=== PATIENT | male | born 1950 | race Caucasian/White ===

== ENCOUNTER 2025-07-22 14:58 | Outpatient (REF) | payer MEDICARE, SELFPAY ==
[2025-07-22 18:31] LABS: Thyroid Stimulating Hormone 1.20 uIU/mL (0.32-4.0)
[2025-07-22 18:46] LABS: Folate 15.2 ng/mL (> or = 4.0); Vitamin B12 359 pg/mL (200-900)
[2025-07-27 02:33] LABS: ABETA 42/40 Ratio 0.159 (> OR = 0.170); Alzeheimer's Interpretation Indeterminant; Tau protein phosphorylated 217 0.36 pg/mL (< OR = 0.15)
== END 2025-07-22 14:59 | disposition home or self-care (01) ==
LOC: HO.LAB 14:58
PROVIDERS: PCP Internal Medicine; Visit Provider Psychiatry & Neurology Neurology
DX: G31.84 Mild cognitive impairment of uncertain or unknown etiology (principal); G62.9 Polyneuropathy, unspecified
CPT/HCPCS: 36415; 82233; 82234; 82607; 82746; 84393; 84443; 99202

== ENCOUNTER 2025-07-22 14:58 | Outpatient (AMB) | payer MEDICARE, SELFPAY ==
--- NOTE | 2025-07-22 15:08 | A.OFFVIS_ITS ---
Intake Visit Reasons: memory loss HPI Comments Details: The patient is a 75-year-old male, a property tax assessor, presenting with cognitive concerns potentially related to early-stage Alzheimer's Disease. For the past couple of years, he has experienced increasing difficulties with memory and attention, marked by what he identifies as dyslexic-like symptoms. As a tax analyst, he has been making errors in his work, particularly interposing numbers and words, despite efforts to be more deliberate and slow with his tasks. He describes these cognitive issues intensifying under stress. Additionally, he reports episodes of navigational confusion, both in driving and in finding locations, including the difficulty encountered today in arriving at the clinic. The patient uses GPS for driving to mitigate these instances. He mentions specific instances of misunderstanding directions, yet can occasionally self-correct. Memory issues mostly pertain to route directions, whereas he can recall specific details, such as room numbers, once situated. Over the past years, occasional financial errors have occurred, such as incomplete checks for utility payments. His diabetes is reported well- controlled; however, he has essential hypertension requiring attentive management. There is a historical note of successfully treated prostate cancer. The patient denies depression but acknowledges typical stress fitting his lifestyle. There is no recent neurological imaging. Review of Systems Narrative - Neurological: Reports difficulties with memory, navigation; denies hallucinations. - Endocrine: Reports well-controlled diabetes. - Cardiovascular: Reports essential hypertension, undergoing cardiology follow- up. - Urogenital: Denies current issues, history of prostate cancer treated successfully. - Mood: Denies clinical depression; reports typical lifestyle stress. - Family/Social: Reports no significant family history of dementia. Physical Exam Neuro Other: Mental Status: He is alert and awake with normal spontaneity but somewhat decreased fluency of speech when sometime he would look for word. Comprehension was intact. His [place] cognitive assessment score was 28, mini-mental status score was 29, and functional activities score was 4. Cranial Nerves: CN II: Visual rosado full to confrontation, visual acuity intact. CN III, IV, : Pupils equal, round, reactive to light and accommodation. Extraocular movements are normal. CN V: Facial sensation is normal. CN VII: Facial movements symmetrical. CN VIII: Hearing intact to bedside conversation is normal. CN IX, X: Palate elevates symmetrically. CN XI: Shoulder shrug and head turn symmetrical. CN XII: Tongue midline without atrophy or fasciculations. Motor: Bulk and tone normal in all extremities. No significant muscle weakness in arms and legs. No drift. Reflexes: Deep tendon reflexes were trace in knees and arms and absent in ankles with flexor plantars Coordination: [id number] testing revealed mild bilateral ataxia. Gait and Station: No obvious gait abnormality. No ataxia or instability. Extrapyramidal: Full facial expressions and blinking. No rigidity. Movements are appropriate with no tremor or abnormality. Speech: Normal; no dysarthria or tremor. Assessment & Plan Assessment & Plan (1) MCI (mild cognitive impairment): Code(s): G31.84 - Mild cognitive impairment of uncertain or unknown etiology Category: Medical (2) Peripheral neuropathy: Code(s): G62.9 - Polyneuropathy, unspecified Category: Medical Qualifiers: Peripheral neuropathy type: polyneuropathy, unspecified Qualified Code(s): G62.9 - Polyneuropathy, unspecified Plan 75 years old man with mild cognitive impairment with suspicion of Alzheimer disease. He was reassured and educated about process of investigation. Initial investigations were requested and I would see him back after MRI. 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 I informed the patient about the concern of early-stage Alzheimer's Disease, discussed the rationale behind recommended diagnostic tests like blood tests and brain MRI, and the importance of catching the condition early. Modern treatments available for Alzheimer's were discussed, including their success rates and early intervention benefits. Diagnostic results will dictate whether FDA- approved medications are appropriate and necessary. The patient was assured regarding diabetes control and encouraged to maintain hypertension management, with an upcoming cardiology consultation highlighted. Orders: Orders Vitamin B12 and Folate Today G31.84 - Mild cognitive impairment of uncertain or unknown etiology Thyroid Stimulating Hormone Today G31.84 - Mild cognitive impairment of uncertain or unknown etiology ABeta 42/40 p-tau 217 Eval Today G31.84 - Mild cognitive impairment of uncertain or unknown etiology MR head/brain wo con Today G31.84 - Mild cognitive impairment of uncertain or unknown etiology Coding Level of Care Code New Pt Level 5 (92473) Global (20902) Diagnoses MCI (mild cognitive impairment) G31.84 Peripheral polyneuropathy G62.9 Peripheral neuropathy type: polyneuropathy, unspecified Time Spent (min) 65 Comment Reviewing records, psychological test, and counseling,
--- OUTSIDE RECORDS SUMMARY | 2025-07-22 18:13 | XMS_ITS | Clinical Summary ---
Author Organization [facility] Address [address] [place] [address] Phone Care Team Providers Care Academic Coordinator Name Role Phone Lin Carrillo MD Primary Care Provider + [phone] Allergies Active Allergy Reactions Criticality Noted Date Comments Hydrochlorothiazide 10/02/2022 Other reaction(s): leg cramping Niacin Flushing Medium 07/28/2024 Medications Vitamin C tablet Vitamin C Active ubidecarenone (COENZYME Q10 ORAL) Take by mouth 1 (one) time each day. COENZYME Q10 (CO Q 10 OR) Active ferrous sulfate 325 mg (65 mg elemental iron) tablet Take 1 tablet (325 mg total) by mouth. Every morning with breakfast Active fluticasone propionate (FLONASE) 50 mcg/actuation nasal spray fluticasone propionate 50 mcg/actuation nasal spray,suspension INSTILL 2 SPRAYS IN EACH NOSTRIL ONCE A DAY NEEDED 1 Active gabapentin (NEURONTIN) 300 mg capsule Take 4 capsules (1,200 mg total) by mouth 1 (one) time each day in the morning. Active metFORMIN (GLUCOPHAGE) 500 mg tablet Take 2 tablets (1,000 mg total) by mouth at bedtime. Active OMEGA-3 FATTY ACIDS ORAL Take 2,000 mg by mouth 1 (one) time each day. OMEGA-3 FATTY ACIDS (OMEGA-3 CF) 1000 MG CAPS Active omeprazole (PriLOSEC) [address] capsule Take 1 capsule (20 mg total) by mouth 1 (one) time each day. Active pravastatin (PRAVACHOL) 40 mg tablet Take 1 tablet (40 mg total) by mouth 1 (one) time each day. 3 Active cyanocobalamin (VITAMIN B-12) 100 mcg tablet Take 0.5 tablets (50 mcg total) by mouth 1 (one) time each day. Active gabapentin (NEURONTIN) 300 mg capsule Take 3 capsules (900 mg total) by mouth at bedtime. Active lisinopriL (PRINIVIL,ZESTR IL) 30 mg tablet Take 1 tablet (30 mg total) by mouth 1 (one) time each day. Active cholecalciferol (VITAMIN D-3) 25 mcg (1,000 unit) tablet Take 1 tablet (1,000 Units total) by mouth 1 (one) time each day. Active magnesium, amino acid chelate, 133 mg tablet Take 1 tablet (133 mg total) by mouth 2 (two) times a day. Active potassium gluconate 550 mg (90 mg) tablet Take by mouth. Activ e ezetimibe (ZETIA) 10 mg tablet Take 1 tablet (10 mg total) by mouth 1 (one) time each day. 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 Patient will continue present medical management for hyperlipidemia. Patient is experiencing no cardiovascular symptoms at this time. Last Assessment & Plan: Patient therapy for lipid management seems to have his lipids under good control without side effects. Patient will continue present medical management for hyperlipidemia. Patient is experiencing no cardiovascular symptoms at this time. 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 Tick bite 07/11/2017 Arthritis 07/11/2017 Anemia 07/11/2017 Surgical History Surgery Date Site/Laterality Comments LUNG REMOVAL, PARTIAL BRONCHOSCOPY APPENDECTOMY EXPLORATORY LAPAROTOMY RECTAL SURGERY KNEE ARTHROPLASTY KIDNEY STONE SURGERY PROSTATE SURGERY Medical History Medical History Date Comments Pneumohemothorax Cancer ([facility] V24, [facility] V28) Prostate cancer ([facility] V24, [facility] V28) Hypertension Hyperlipidemia GERD (gastroesophageal reflux disease) Cholelithiasis Dental disease Diabetes mellitus ([facility] V24, [facility] V28) Social History Tobacco Use Types Packs/Day Years Used Date Smoking Tobacco: Former Cigarettes 1 Q uit: 09/09/1983 Smokeless Tobacco: Never Tobacco Cessation:Counseling Given: Not Answered Alcohol Use Standard Drinks/Week Comments Not Asked 0 (1 standard drink = 0.6 oz pur e alcohol) Sex and Gender Information Value Date Recorded Sex Assigned at Male 09/14/2024 8:14 AM EST Legal Sex Male 4:04 AM EST Gender Identity Male 09/14/2024 8:14 AM EST Sexual Orientation Straight 09/14/2024 8: 14 AM EST Obstetrics History Last Filed Vital Signs Vital Sign Reading Time Taken Comments Blood Pressure 135/70 11/20/2024 9:56 AM EDT Pulse 74 11/20/2024 9:56 AM EDT Temperature 36.6 C (97.8 F) 09/14/2024 1:19 PM EST Respiratory Rate 20 09/14/2024 1:19 PM EST Oxygen Saturation 100% 09/14/2024 1:19 PM EST Inhaled Oxygen Concentration - - Weight 73.7 kg (162 lb 8 oz) 11/20/2024 9:56 AM EDT Height 170.2 cm (5' 7 ) 11/20/2024 9:56 AM EDT Body Mass Index 25.45 11/20/2024 9:56 AM EDT Plan of Treatment Upcoming Encounters Date Type Department Care Team (Late st Contact Info) Description 08/03/2025 11:10 AM EST Office Visit [facility] [address] [place] [address] Emerald Gaxiola NP [address] [place] [address] [address] [place] [address] Health Maintenance Due Date Last Done Comments Diabetes: Annual Foot Exam 1960 Diabetes: Annual Retina Eye Exam 1960 DTaP,Tdap,and Td Vaccines (1 - Tdap) 1969 Hepatitis A Vaccines (1 of 2 - Risk 2-dose series) 1969 Abdominal Aortic Aneurysm (AAA) Screen 08/19/2022 Falls Risk Assessment 08/19/2022 Hepatitis C Screening 08/19/2022 Medicare Annual Wellness Visit 08/19/2022 Social Influencers of Health Screening 08/19/2022 Diabetes: Annual Urine Albumin-Creatinine Ratio (uACR) 10/26/2023 09/15/2021 Diabetes: Blood Sugar Control Test (HGBA1C) 10/26/2023 09/15/2021, 09/15/2021 Depression Screening 09/09/2024 COVID-19 Vaccine ( season) 2025 05/09/2024, 06/24/2023, 02/14/2023, Additional history exists Influenza Vaccine (#1) 2025 , 07/21/2023, 06/01/2022, Additional history exists Diabetes: Annual GFR (Glomerular Filtration Rate) 11/23/2025 11/23/2024, 09/15/2021 Hypertension/CHF/CAD Annual BMP Blood Test 11/23/2025 11/23/2024, 09/15/2021 Cholesterol Screening (Lipid Panel) 09/15/2026 09/15/2021, 03/15/2021 Colorectal Cancer Screening: Colonoscopy 09/17/2028 09/17/2018 Zoster Vaccines Completed 06/15/2020, 11/12/2019 Pneumococcal Vaccine: 50+ Years Completed 02/14/2023 RSV Immunization Adult Patients Completed 05/02/2023 HIB Vaccines Aged Out No longer eligi ble based on patient's age to complete this topic HPV Vaccines Aged Out No longer eligi ble based on patient's age to complete this topic Hepatitis B Vaccines Aged Out No long er eligible based on patient's age to complete this topic IPV Vaccines Aged Out No longer eligi ble based on patient's age to complete this topic MMR Vaccines Aged Out No longer eligi ble based on patient's age to complete this topic Meningococcal ACWY Vaccine Aged Out N o longer eligible based on patient's age to complete this topic Meningococcal B Vaccine Aged Out No l onger eligible based on patient's age to complete this topic RSV Immunization Patients Under 20 months Aged Out No longer eligible based on patient's age to complete this topic Varicella Vaccines Aged Out No longer eligible based on patient's age to complete this topic Medical Devices Implanted Type Area Hourly Associate Device Identifier Shelf Expiration Date Model / Serial / Lot Dental Implants Dental Implants N/A: Mouth Procedures Procedure Name Priority Date/Time Associated Diagnosis Comments BASIC METABOLIC PANEL Routine 11/23/2024 1:10 PM EDT Gallstones HM URINE ALBUMIN CREATININE RATIO Routine 09/15/2021 HEMOGLOBIN A1C Routine 09/15/2021 LIPID PANEL Routine 09/15/2021 from Last 3 Months or Most Recently Relevant to Health Maintenance Results * (ABNORMAL) Basic metabolic panel (11/23/2024 1:10 PM EDT) Sodium 137 133 - 145 mmol/L LAB CHEMISTRY METHOD 11/23/2024 4:50 PM EDT [facility] Potassium 4.5 3.5 - 5.5 mmol/L LAB CHEMISTRY METHOD 11/23/2024 4:50 PM EDT [facility] Chloride 102 96 - 110 mmol/L LAB CHEMISTRY METHOD 11/23/2024 4:50 PM EDT [facility] CO2 28 21 - 32 mmol/L LAB CHEMISTRY METHOD 11/23/2024 4:50 PM EDT [facility] Anion Gap 7 3 - 11 LAB CHEMISTRY METHOD 11/23/2024 4:50 PM EDT [facility] Glucose 135(H) 70 - 100 mg/dL LAB CHEMISTRY METHOD 11/23/2024 4:50 PM EDT [facility] BUN 17 5 - 25 mg/dL LAB CHEMISTRY METHOD 11/23/2024 4:50 PM EDT [facility] Creatinine 1.03 0.70 - 1.30 mg/dL LAB CHEMISTRY METHOD 11/23/2024 4:50 PM EDT [facility] eGFR 76 >=60 mL/min/1. 73m2 LAB CHEMISTRY METHOD 11/23/2024 4:50 PM EDT [facility] Comment:Calculation based on the Chronic Kidney Disease Epidemiology Collaboration (CKD-EPI) equation refit without adjustment for race. BUN/Creatinine Ratio 16.5 LAB CHEMISTRY METHOD 11/23/2024 4:50 PM EDT [facility] Calcium 9.4 8.5 - 10.5 mg/dL LAB CHEMISTRY METHOD 11/23/2024 4:50 PM EDT [facility] Blood Venous blood specimen / Unknown Venipuncture / Unknown 11/23/2024 1:10 PM EDT 11/23/2024 1:10 PM EDT Oc Santos DO LAB BLOOD ORDERABLES Final Res ult [facility] [address] [place] [address], * HM Urine Albumin Creatinine Ratio (09/15/2021) HM Urine Albumin Creatinine Ratio abstracted Historical Provider HEALTH MAINTENANCE Final Result * Hemoglobin A1c (09/15/2021) Hemoglobin A1C 0.0 % Comment:no interpretation, a bstracted Blood Venous blood specimen / Unknown Historical Provider LAB BLOOD ORDERABLES Nereida l Result * Lipid panel (09/15/2021) LDL/HDL Ratio 0 Comment:no interpretation, a bstracted Triglycerides 0 mg/dL Comment:no interpretation, a bstracted Cholesterol 0 mg/dL Comment:no interpretation, a bstracted HDL 0 mg/dL Comment:no interpretation, a bstracted LDL Cholesterol 0 mg/dL Comment:no interpretation, a bstracted Blood Venous blood specimen / Unknown Historical Provider LAB BLOOD ORDERABLES Nereida l Result from Last 3 Months or Most Recently Relevant to Health Maintenance Insurance [employer] Advance Directives * Full Code - Default (Latest Code Status on File) Date Activated Date Inactivated Comments 09/14/2024 9:18 AM 09/14/2024 5:40 PM This is order is used when code status has not been discussed with the patient, or code status is otherwise unknown/unconfirmed To update the patient's code status, place a code status order. Do not modify or discontinue any currently active code status orders. Care Teams Academic Coordinator Relationship Specialty Start Date End Date Lin Carrillo MD [address] [place] [address] PCP - General Internal Medicine 08/24/24
--- OUTSIDE RECORDS SUMMARY | 2025-07-22 18:13 | XMS_ITS | Clinical Summary ---
Author Organization [facility] Address [address] [place] [address] Care Team Providers Care Excelsior Machine Feeder Name Role Phone Lin Carrillo MD Primary Care Provider [phone] Allergies No known active allergies Medications Medication Sig Dispensed Refills Start Date End Date Status gabapentin (NEURONTIN) 300 MG capsule Take by mouth 2 (two) times a day. 0 Active omeprazole (PRILOSEC) 20 MG capsule Take 1 capsule (20 mg total) by mouth daily. 0 Active vitamin B-12 (CYANOCOBALAMIN) 100 MCG tablet Take 0.5 tablets (50 mcg total) by mouth daily. 0 Active Coenzyme Q10 (CO Q-10) 100 MG CAPS Take by mouth daily. 0 Active metFORMIN (GLUCOPHAGE) tablet 500 mg Take 1 tablet (500 mg total) by mouth daily. Taking 1500mg,3 tablets daily. 0 Active lisinopril (PRINIVIL,ZESTRIL) tablet 20 mg Take 1.5 tablets (30 mg total) by mouth daily. 0 Active ferrous sulfate 325 (65 FE) MG tablet Take 1 tablet (325 mg total) by mouth every morning with breakfast. 0 Active Tilly-3 Fatty Acids (OMEGA-3 CF) 1000 MG CAPS Take 1,000 mg by mouth daily. 0 Active pravastatin (PRAVACHOL) tablet 40 mg Take 1 tablet (40 mg total) by mouth daily. 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 Patient will continue present medical management for hyperlipidemia. Patient is experiencing no cardiovascular symptoms at this time. 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 Tick bite 07/11/2017 Arthritis 07/11/2017 Anemia 07/11/2017 Family History Medical History Relation Name Comments Cancer Brother 1 colon Cancer Brother 2 colon Cirrhosis Father Cancer Mother lung cancer Cancer Sister 1 ovarian No Sig Med Hx Sister 2 Relation Name Status Comments Brother 1 Alive Brother 2 Alive Father (Age 62) Mother (Age 34) Sister 1 Alive Sister 2 Alive Social History Tobacco Use Types Packs/Day Years Used Date Smoking Tobacco: Former Cigarettes Q uit: 1985 Smokeless Tobacco: Never Tobacco Cessation:Counseling Given: Not Answered Alcohol Use Standard Drinks/Week Comments No 0 (1 standard drink = 0.6 oz pur e alcohol) Sex and Gender Information Value Date Recorded Sex Assigned at Male 08/05/2023 10:31 AM EST Gender Identity Not on file Sexual Orientation Not on file Job Start Date Occupation Industry Not on file Not on file Not on file Last Filed Vital Signs Vital Sign Reading Time Taken Comments Blood Pressure 130/61 01/30/2024 2:47 PM EDT Pulse 70 01/30/2024 2:47 PM EDT Temperature 36.7 C (98.1 F) 01/30/2024 2:47 PM EDT Respiratory Rate 19 01/30/2024 2:47 PM EDT Oxygen Saturation 98% 01/30/2024 2:47 PM EDT Inhaled Oxygen Concentration - - Weight 76.7 kg (169 lb) 01/30/2024 2:47 PM EDT Height 167.6 cm (5' 6 ) 01/30/2024 2:47 PM EDT Body Mass Index 27.28 01/30/2024 2:47 PM EDT Plan of Treatment Health Maintenance Due Date Last Done Comments Hepatitis C Screening 1950 Depression Screening 1962 Preventative Health Evaluation 1968 DTap / Tdap / Td (1 - Tdap) 1969 Colon Cancer Screening (Colonoscopy) 1995 Fall Risk Assessment 2015 COVID-19 Vaccine (2 - Pfizer risk series) 07/15/2023 06/24/2023 Influenza Vaccine (#1) 2025 3, 06/01/2022, 06/01/2022, Additional history exists Shingrix-Zoster Vaccine Completed 06/15/2020, 11/11 Pneumococcal Vaccine Completed 02/14/2023 RSV Adult > 60+ Yrs or Completed 05/02/2023 Hepatitis B Vaccines Aged Out No long er eligible based on patient's age to complete this topic RSV Ped < 20 months Aged Out No longe r eligible based on patient's age to complete this topic Care Teams Excelsior Machine Feeder Relationship Specialty Start Date End Date Lin Carrillo MD [address] [place] [id number] PCP - General Internal Medicine 08/05/23
--- OUTSIDE RECORDS SUMMARY | 2025-07-22 18:13 | XMS_ITS ---
Author Organization [facility] Address [address] [place] [address] Phone Care Team Providers Care Disbursing Agent Name Role Phone Lin Carrillo MD Primary Care Provider + [phone] Active Problems Problem Noted Date Diagnosed Date Chronic right flank pain 11/20/2024 Gallstones 07/28/2024 Benign prostatic hyperplasia 10/02/2022 Degenerative disc disease, lumbar 10/02/2022 GERD (gastroesophageal reflux disease) Mixed hyperlipidemia 10/02/2022 Hypertension 10/02/2022 Retinal macroaneurysm [...] symptoms at this time. 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 Past Treatment and Therapy Plans No past plan information found. Lifetime Dose Tracking * Chemical Lifetime Dose Automatic Entry Manual Entr y CTDIvol 23.36 mGy 23.36 mGy 0 mGy
--- OUTSIDE RECORDS SUMMARY | 2025-07-22 18:14 | XMS_ITS | Encounter Summary ---
Author Organization [employer] Address [address] [facility] [address] [place] [address] Care Team Providers Care V Belt Builder Name Role Phone CarrilloLin browning Primary Care Provider [phone] Reason for Visit * Reason Comments Med Refill Encounter Details Date Type Department Care Team (Late st Contact Info) Description 01/17/2024 Refill [facility] [address] [place] [address] Anusha Rascon, JADA [address] [place] [address] Social History Tobacco Use Types Packs/Day Years Used Date Smoking Tobacco: Former Cigarettes Comments:Quit about 35 years ago Sex and Gender Information Value Date Recorded Sex Assigned at Male 09/24/2022 9:26 AM EST Legal Sex Male 8:38 PM EDT Gender Identity Male 09/24/2022 9:26 AM EST Sexual Orientation Straight 09/24/2022 9: 26 AM EST documented as of this encounter Plan of Treatment Not on file documented as of this encounter Visit Diagnoses Not on filedocumented in this encounter Care Teams V Belt Builder Relationship Specialty Start Date End Date Lin Carrillo [address] [address] PCP - General Internal Medicine 10/12/24 documented as of this encounter
--- OUTSIDE RECORDS SUMMARY | 2025-07-22 18:14 | XMS_ITS | Clinical Summary ---
Author Organization [employer] Address [address] [place] [address] Care Team Providers Care Wool Cleaner Name Role Phone Lin Carrillo Primary Care Provider [phone] Allergies Active Allergy Reactions Criticality Noted Date Comments Hydrochlorothiazide 10/02/2022 Other reaction(s): leg cramping Medications Coenzyme Q10 (CO Q 10 PO) Co Q 10 Active Ferrous Sulfate (IRON SUPPLEMENT PO) Orally Activ e lisinopril 30 MG tablet lisinopril Active metFORMIN (Glucophage) 500 MG tablet metformin Active omega-3 (fish oil) 1000 MG capsule 2 capsules daily Act jasiel Ascorbic Acid (VITAMIN C PO) Vitamin C Activ e cyanocobalamin (Vitamin B-12) 100 MCG tablet Take 50 mcg by mouth in the morning. Active fluticasone (Flonase) 50 MCG/ACT nasal spray fluticasone propionate 50 mcg/actuation nasal spray,suspension INSTILL 2 SPRAYS IN EACH NOSTRIL ONCE A DAY NEEDED 1 Active gabapentin (Neurontin) 300 MG capsuleIndicati ons:Degenerativ e disc disease, lumbar TAKE 4 CAPS EVERY MORNING AND TAKE 3 CAPS EVERY EVENING 90 630 capsule 3 3 Active omeprazole (PriLOSEC) [address] capsule TAKE 1 CAPSULE BY MOUTH EVERY DAY 90 capsule 3 3 Active ezetimibe (Zetia) 10 MG tablet Take 10 mg by mouth Once per day. 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 Mixed hyperlipidemia 10/02/2022 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, right hand 10/02/2022 Primary osteoarthritis of left hand 10/02/2022 Posterior vitreous detachment of both eyes 10/02 Dry eye syndrome of both eyes 10/02/2022 Benign prostatic hyperplasia 10/02/2022 Sciatica of right side 10/02/2022 Type 2 diabetes mellitus 10/02/2022 COVID-19 10/02/2022 Type 2 diabetes mellitus without complication Irregular heart rate 10/02/2022 Overweight (BMI 25.0-29.9) 10/02/2022 Epiretinal membrane (ERM) of left eye 10/02/2022 Calculus of right kidney 10/02/2022 Hx of arteriovenous malformation (AVM) Carcinoma of prostate (CMS/HCC) 12/16/2021 Hyperplastic polyp of stomach 10/14/2018 Adenomatous polyp of ascending colon 10/14/2018 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 Arthritis 07/11/2017 Anemia 07/11/2017 Tick bite 07/11/2017 Family History Medical History Relation Name Comments Family hx of retinitis Other Uncle hx of retinitis pigmentosa Other Relation Name Status Comments Other Social History Tobacco Use Types Packs/Day Years Used Date Smoking Tobacco: Former Cigarettes Tobacco Cessation:Counseling Given: Not Answered Comments:Quit about 35 years ago Sex and Gender Information Value Date Recorded Sex Assigned at Male 09/24/2022 9:26 AM EST Legal Sex Male 8:38 PM EDT Gender Identity Male 09/24/2022 9:26 AM EST Sexual Orientation Straight 09/24/2022 9: 26 AM EST Last Filed Vital Signs Vital Sign Reading Time Taken Comments Blood Pressure 132/68 10/08/2023 3:08 PM EST Pulse 71 04/25/2021 9:45 AM EDT Temperature 36.2 C (97.1 F) 10/08/2023 3:08 PM EST Respiratory Rate - - Oxygen Saturation 99% 09/21/2021 1:45 PM EST Inhaled Oxygen Concentration - - Weight 77.1 kg (170 lb) 09/21/2021 1:45 PM EST Height 170.2 cm (5' 7 ) 09/21/2021 1:45 PM EST Body Mass Index 26.63 09/21/2021 1:45 PM EST Plan of Treatment Health Maintenance Due Date Last Done Comments CT Colonography 1950 Depression Screening 1950 FIT DNA/Cologuard 1950 FIT 1950 FOBT 1950 SDOH Screening 1950 Sigmoidoscopy 1950 Diabetes: Foot Exam 1960 Alcohol/Substance Use Screening 1962 Tobacco Screening 1962 Hepatitis C Screening 1968 Diabetes: Hemoglobin A1C 12/14/2021 022, 09/15/2021, 03/15/2021, Additional history exists Lipid Panel 03/15/2022 03/15/2021, 04/12/2020 Diabetes: Urine Protein Screening 09/15/2022 09/15/2021, 09/19/2020 DTaP/Tdap/Td Vaccines (3 - Td or Tdap) 12/31/2022 12/31/2012, 05/29/2011 COVID-19 Vaccine ( season) 2025 05/09/2024, 06/24/2023, 02/14/2023, Additional history exists Influenza Vaccine (#1) 2025 , 05/09/2024, 07/21/2023, Additional history exists Eye Exam 12/11/2026 12/11/2024, 02/0 12/2024, 10/13/2024, Additional history exists Colonoscopy 09/17/2028 09/17/2018, 04/23/2013 Colorectal Cancer Screening 09/17/2028 Zoster Vaccines Completed 06/15/2020, 11/12/2019 Pneumococcal Vaccine: 50+ Years Completed 02/14/2023, 01/19/2015, 01/29/2013, Additional history exists RSV Patients and Patients Aged 60 years or older Completed 05/02/2023 HIB Vaccines Aged Out No longer eligi ble based on patient's age to complete this topic HPV Vaccines Aged Out No longer eligi ble based on patient's age to complete this topic Hepatitis A Vaccines Aged Out No long er eligible [...] patient's age to complete this topic Meningococcal Vaccine Aged Out No arlette giancarlo eligible based on patient's age to complete this topic RSV under 20 months Aged Out No longe r eligible based on patient's age to complete this topic Rotavirus Vaccines Aged Out No longer eligible based on patient's age to complete this topic Procedures Procedure Name Priority Date/Time Associated Diagnosis Comments AMB REFERRAL TO OPHTHALMOLOGY Routine 12/11/2024 Macular hole of left eye ALBUMIN, RANDOM URINE W/CREATININE Routine 09/15/2021 2:53 PM EST HEMOGLOBIN A1C Routine 09/15/2021 2:53 PM EST LIPID PANEL, STANDARD Routine 03/15/2021 12:38 PM EDT COLONOSCOPY Routine 09/17/2018 12:00 AM EST from Last 3 Months or Most Recently Relevant to Health Maintenance Results * Referral to Ophthalmology (12/11/2024) Zay Danielson OD OUTPATIENT REFERRAL ORDERABLES Final Result * -Microalbumin, Urine (09/15/2021 2:53 PM EST) Microalbumin Urine <12.0 (<20) MG/L [facility] Comment: The urine microalbumin test is designed to monitor renal function. When screening for Bence Trevino proteinuria, urine electrophoresis is recommended. Microalb/Creat Ratio Unable to calculate (0-20) MG/GM [facility] Creatinine, Urine 99.1 MG/DL [facility] 09/15/2021 2:53 PM EST Anusha Thorntonadenike [facility] URINE ORDERABLES Final Re sult Performing Organization Address [facility] Co de Phone Number [facility] [address] * (ABNORMAL) -Hemoglobin A1C, Whole Blood (09/15/2021 2:53 PM EST) Hemoglobin A1c 5.8(H) (4.0-5.6) % [facility] Comment: MONITORING: In known diabetic patients, hemoglobin A1c targets should be discussed with health care provider. DIAGNOSTIC USE: The [place] Diabetes Association (ADA) and the World Health Organization (WHO) recommend the use of HbA1c to diagnose diabetes using a threshold of 6.5%. Patients who have an HbA1c between 5.7% and 6.4% are considered at increased risk for developing diabetes in the future. CAUTION: Falsely low HbA1c results may be observed in patients with hemolytic anemia, homozygous forms of abnormal hemoglobin (e.g. SS, CC, SC), , recent blood loss or hemoglobin F greater than 7%. Fructosamine may be used as an alternate test in these cases. REFERENCE: ADA: Standards of Medical Care in Diabetes 2020, The Journal of Clinical and Applied Research and Education Volume 43, Supplement 1 09/15/2021 2:53 PM EST Anusha Rascon [facility] BLOOD ORDERABLES Final Re sult Performing Organization Address [facility] Phone Number [facility] [address] * (ABNORMAL) -Lipid Panel (03/15/2021 12:38 PM EDT) LDL CHOLESTEROL, CALCULATED 75 (0-130) MG/DL [facility] CHOLESTEROL, TOTAL 160 (<200) MG/DL [facility] HDL CHOL 43 (>39) MG/DL [facility] NON HDL CHOLESTEROL (CALC) 117 (<160) MG/DL [facility] TRIGLYCERIDE 211(H) (<150) MG/DL [facility] 03/15/2021 12:3 8 PM EDT Anusha Thorntonadenike QC TECH LAB BLOOD ORDERABLES Final Re sult [facility] [address] * COLONOSCOPY (09/17/2018 12:00 AM EST) Anatomical Region Laterality Modality Endoscopy 09/17/2018 Narrative 09/17/2018 12:00 AM EST Refer to Fovea for result details Legacy Procedure: COLONOSCOPY Procedure Note Provider, MD Fahad - 01/03/2023 Refer to Fovea for result details Legacy Procedure: COLONOSCOPY Historical Provider ENDOSCOPY PROCEDURE ORDER ROB Final Result from Last 3 Months or Most Recently Relevant to Health Maintenance Insurance [employer] PREF[employer]ED [facility] Care Teams Wool Cleaner Relationship Specialty Start Date End Date Lin Carrillo [address] [place] [address] [place] [address] PCP - General Internal Medicine 10/12/24
--- OUTSIDE RECORDS SUMMARY | 2025-07-22 18:14 | XMS_ITS | Clinical Summary ---
Author Organization [employer] [facility] lin Address [address] [place] [address] Care Team Providers Care Host And Hostess Name Role Phone Lin Carrillo MD Primary Care Provide r Allergies No known active allergies Medications lisinopril (PRINIVIL,ZESTR IL) 30 MG tablet TAKE 1 TABLET BY MOUTH EVERY DAY 1 9 Active gabapentin (NEURONTIN) 300 MG capsule Take 2,100 mg by mouth. Active omeprazole (PriLOSEC) 20 MG capsule Take 20 mg by mouth. Active metFORMIN (GLUCOPHAGE) 500 MG tablet Take 500 mg by mouth. Active pravastatin (PRAVACHOL) 40 MG tablet TAKE 1 TABLET BY MOUTH EVERY DAY 11 9 Active neomycin-polymy christi-hydrocortis one (CORTISPORIN) otic solution 4 drops in affected ear(s) 4 times daily for 7-10 days. 7.5 mL 9 Active docosahexaenoic acid-epa 120-180 mg cap 2 capsules daily Active cyanocobalamin 100 MCG tablet Take 50 mcg by mouth Active fluticasone propionate (FLONASE) 50 mcg/actuation nasal spray fluticasone propionate 50 mcg/actuation nasal spray,suspension INSTILL 2 SPRAYS IN EACH NOSTRIL ONCE A DAY NEEDED 1 Active omega-3 acid ethyl esters (LOVAZA) 1 gram capsule TAKE 1 CAPSULE BY MOUTH TWICE A DAY 3 Active Social History Tobacco Use Types Packs/Day Years Used Date Smoking Tobacco: Never Smokeless Tobacco: Never Tobacco Cessation:Counseling Given: Not Answered PHQ-2 Answer Date Recorded PHQ-2 Score Patient declined 05/27/2023 Sex and Gender Information Value Date Recorded Sex Assigned at Not on file Legal Sex Male 2:19 PM EDT Gender Identity Not on file Sexual Orientation Not on file Last Filed Vital Signs Vital Sign Reading Time Taken Comments Blood Pressure 120/80 05/27/2023 12:03 PM EDT Pulse 80 05/27/2023 12:03 PM EDT Temperature 36.7 C (98 F) 05/27/2023 12:03 PM EDT Respiratory Rate 18 05/27/2023 12:03 PM EDT Oxygen Saturation 99% 05/27/2023 12:03 PM EDT Inhaled Oxygen Concentration - - Weight - - Height - - Body Mass Index - - Plan of Treatment Health Maintenance Due Date Last Done Comments Colorectal Cancer: COLONOSCO PY Screening every 10 yrs (or Modifier) 1950 Depression: Screening Annual ly using PHQ-2/9 in Adults 18 yrs or above (or HM Modifier)([facility]) 1968 Hepatitis C Virus Infection in Adolescents and Adults: Screening (or Modifier) ([facility]) 1968 [facility] Screening Reminder: Cecy hearn for all adults ([facility]) 1968 Tobacco Smoking Cessation: i n Adults excluding Women: Behavioral and Pharmacotherapy Interventions ([facility]) 1968 DTaP/Tdap/Td Vaccines ([facility]) (1 - Tdap) 1969 Colorectal Cancer Screening 45 -75 Yrs (or HM Modifier ) 1995 Colorectal Cancer: FLEXIBLE SIGMOIDOSCOPY Screening every 5 yrs 1995 Colorectal Cancer: Fecal Imm unochemical Test (FIT) Annually [facility] 1995 Colorectal Cancer: High-sens itivity gFOBT Screening Annually [facility] 1995 Colorectal Cancer: Stool Col oguard Screening every 3 yrs 1995 Colorectal Cancer:CT Colonography Screening every 5 yr s 1995 Pneumococcal Vaccination Scr eening: Patients 50+ yrs of age ([facility]) (1 of 1 - PCV) 2000 Zoster/Shingles Vaccine Seri es Screening: Adults aged 18+ yrs (or HM Modifiers)([facility]) (1 of 2) 2000 Flu Vaccination: Ages 65+: Y early High Dose Recommended (or Modifier)([facility]) 04/09/2025 COVID-19 Vaccine Screening: Initial Series and Booster Status ([facility]) ( - 2024- season) 2025 RSV Vaccines (1 - 1-dose 75+ series) 2025 [employer] Not on file Insurance [facility] Care Teams Host And Hostess Relationship Specialty Start Date End Date Lin Carrillo MD [address] [place] [id number] PCP - General Internal Medicine 05/27/23
== END 2025-07-22 15:43 | disposition home or self-care (01) ==
LOC: HO.HSM 14:58
PROVIDERS: Visit Provider Psychiatry & Neurology Neurology
DX: G31.84 Mild cognitive impairment of uncertain or unknown etiology (principal); G62.9 Polyneuropathy, unspecified
CPT/HCPCS: 99205; G2211

== ENCOUNTER 2025-08-29 11:11 | Outpatient (REF) | payer MEDICARE, SELFPAY ==
--- NOTE | ~2025-08-29 | MR_ITS ---
CLINICAL HISTORY: G31.84 - Mild cognitive impairment of uncertain or unknown etiology Exam: Nonenhanced MRI brain. Comparison: None. Findings: There is no cerebral edema or mass effect. 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 Diffusion weighted imaging reveals no restricted diffusion or MR evidence of acute ischemia. Susceptibility weighted imaging reveals no susceptibility artifact or evidence of intracranial hemorrhage. No sellar or parasellar lesions. Ventricular size and configuration are within normal limits. Cerebral cisterns are preserved. No significant signal abnormality seen within the paranasal sinuses or mastoid air cells. Preserved flow signal voids are present within visualized intracranial vasculature. Impression: 1. No acute intracranial abnormalities. This document has been electronically signed by: Negro Santos MD on 08/31/2025 17:32:58
--- OUTSIDE RECORDS SUMMARY | 2025-08-29 11:14 | XMS_ITS ---
Author Name [employer] Organization Unknown Results Test Name/Text Value Interpretation Date Range Source PSA SERPL-MCNC 3.2 ng/mL Normal 01/30/2024 0 - 4 [facility] History of Medication Use Medication Directions Dispensed Refills Start Date End Date Stat us tamsulosin (FLOMAX) 0.4 MG CAPS Take 1 capsule (0.4 mg total) by mouth daily. 10/04/2023 01/30/2024 aborted fluticasone (FLONASE) 50 MCG/ACT nasal spray fluticasone propionate 50 mcg/actuation nasal spray,suspension INSTILL 2 SPRAYS IN EACH NOSTRIL ONCE A DAY NEEDED 09/26/2020 active Ascorbic Acid (vitamin C) 100 MG tablet Vitamin C active Coenzyme Q10 (CO Q-10) 100 MG CAPS Take by mouth daily. active ferrous sulfate 325 (65 FE) MG tablet Take 1 tablet (325 mg total) by mouth every morning with breakfast. active gabapentin (NEURONTIN) 300 MG capsule Take by mouth 2 (two) times a day. active lisinopril (PRINIVIL,ZESTRIL) tablet 20 mg Take 1.5 tablets (30 mg total) by mouth daily. active metFORMIN (GLUCOPHAGE) tablet 500 mg Take 1 tablet (500 mg total) by mouth daily. Taking 1500mg,3 tablets daily. active [place]-3 Fatty Acids (OMEGA-3 CF) 1000 MG CAPS Take 1,000 mg by mouth daily. active omeprazole (PRILOSEC) 20 MG capsule Take 1 capsule (20 mg total) by mouth daily. active pravastatin (PRAVACHOL) tablet 40 mg Take 1 tablet (40 mg total) by mouth daily. active vitamin B-12 (CYANOCOBALAMIN) 100 MCG tablet Take 0.5 tablets (50 mcg total) by mouth daily. active Problems Problem Status Onset Date Problem Type Date of Resolution Source Polyarthritis active 2017-10-11 ProblemAct [facility] Carcinoma of prostate (HCC) [facility] Mixed hyperlipidemia active 2022-10-02 ProblemAct [facility] Hyperlipidemia active 2022-01-02 ProblemAct [facility] Other secondary thrombocytopenia active 2017-07-11 ProblemAct [facility] Hyperplastic polyp of stomach active 2018-10-14 ProblemAct [facility] GERD (gastroesophageal reflux disease) active 2022-10-02 ProblemAct [facility] Family history of colon cancer active 2018-10-14 ProblemAct [facility] Degenerative disc disease, lumbar active 2022-10-02 ProblemAct [facility] Benign prostatic hyperplasia active 2022-10-02 ProblemAct [facility] Adenomatous polyp of ascending colon active 2018-10-14 ProblemAct [facility] Tick bite active 2017-07-11 ProblemAct [facility] Carcinoma of prostate active 2021-12-16 ProblemAct [facility] Anemia active 2017-07-11 ProblemAct [facility] Retinal macroaneurysm of right eye active 2022-10-02 ProblemAct [facility] Type 2 diabetes mellitus without complication active 2022-10-02 ProblemAct [facility] Arthritis active 2017-07-11 ProblemAct [facility] Hx of arteriovenous malformation (AVM) active 2022-10-02 ProblemAct [facility] Hypertension active 2022-10-02 ProblemAct [facility] Encounters Encounter Type Encounter Reason Primary Diagnosis Location Date Ambulatory [facility] [place] [place]24 Ambulatory Malignant neoplasm of prostate Malignant neoplasm of prostate [facility] [place] 01/30/2024 [facility] 10/04/2023 [facility] 10/04/2023 Ambulatory [facility] [place] [place]/02/2023 Amb[place] [facility] 09/30/2023 [facility] 09/27/2023 [facility] 09/25/2023 Ambulatory Malignant neoplasm of prostate Malignant neoplasm of prostate [facility] [place] 09/13/2023 [facility] 09/13/2023 [facility] 08/07/2023 Ambulatory Malignant neoplasm of prostate Malignant neoplasm of prostate [facility] [place] 08/07/2023 Care Team Organization Name Specialty Phone Email Start Date End Da te [facility] [place] 08/07/2023 08/07/2023 [facility] CARIDAD PADILLA Primary Care 08/07/20232022
--- OUTSIDE RECORDS SUMMARY | 2025-08-29 11:14 | XMS_ITS ---
Author Organization [address] [facility] Address [address] [place] [address] Phone Care Team Providers Care Home Care Provider Name Role Phone Lin Carrillo MD Primary Care Provider [phone] Active Problems Problem Noted Date Diagnosed Date Chronic right flank pain 11/20/2024 Gallstones 07/28/2024 Benign prostatic hyperplasia 10/02/2022 Degenerative disc disease, lumbar 10/02/2022 GERD (gastroesophageal reflux disease) Mixed hyperlipidemia 10/02/2022 Assessment & Plan (08/03/2025 12:43 PM EST): Patient continues on Zetia for his cholesterol levels. Will update a lipid panel. Hypertension 10/02/2022 Assessment & Plan (08/03/2025 12:43 PM EST): His blood pressure today 164/82. He takes lisinopril 30 mg once a day. I will add amlodipine 5 mg daily and asked him to take this in the morning. He will monitor his blood pressure at home and let me know if he develops any issues with the new medication. 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 Carcinoma of prostate 12/16/2021 Adenomatous polyp of ascending colon 10/14/2018 [...]
--- OUTSIDE RECORDS SUMMARY | 2025-08-29 11:14 | XMS_ITS | Clinical Summary ---
Author Organization [employer] Address [address] [place] [address] Care Team Providers Care General Foreman Name Role Phone Lin Carrillo Primary Care Provider [phone] Allergies Active Allergy Reactions Criticality Noted Date [...] Problem Noted Date Diagnosed Date Prostate cancer ([facility]) 10/02/2022 Hypertension 10/02/2022 Degenerative disc [...] PM EST) Microalbumin Urine <12.0 (<20) MG/L [facility] Comment: The urine microalbumin test is designed to monitor renal function. When screening for Bence Trevino proteinuria, urine electrophoresis is recommended. Microalb/Creat Ratio Unable to calculate (0-20) MG/GM [facility] Creatinine, Urine 99.1 MG/DL [facility] 09/15/2021 2:53 PM EST Anusha Thorntonadenike [facility] URINE ORDERABLES Final Re sult Performing Organization Address [facility] Co de Phone Number [facility] [address] * (ABNORMAL) -Hemoglobin A1C, Whole Blood (09/15/2021 2:53 PM EST) Hemoglobin A1c 5.8(H) (4.0-5.6) % [facility] Comment: MONITORING: In known diabetic patients, hemoglobin A1c targets should be discussed with health care provider. DIAGNOSTIC USE: The [place] Diabetes Association (ADA) and the World Health [...] 1 09/15/2021 2:53 PM EST Anusha Rascon [facility] BLOOD ORDERABLES Final Re sult Performing Organization Address [facility] Phone Number [facility] [address] * (ABNORMAL) -Lipid Panel (03/15/2021 12:38 PM EDT) LDL CHOLESTEROL, CALCULATED 75 (0-130) MG/DL [facility] CHOLESTEROL, TOTAL 160 (<200) MG/DL [facility] HDL CHOL 43 (>39) MG/DL [facility] NON HDL CHOLESTEROL (CALC) 117 (<160) MG/DL [facility] TRIGLYCERIDE 211(H) (<150) MG/DL [facility] 03/15/2021 12:3 8 PM EDT Anusha Thorntonadenike [employer] LAB BLOOD ORDERABLES Final Re sult [facility] [address] * COLONOSCOPY (09/17/2018 12:00 AM EST) [...] Health Maintenance Insurance [employer] PREF[employer]ED [facility] Care Teams General Foreman Relationship Specialty Start Date End Date Lin Carrillo [address] [place] [address] [place] [id number] PCP - General Internal Medicine 10/12/24
--- OUTSIDE RECORDS SUMMARY | 2025-08-29 11:14 | XMS_ITS | Clinical Summary ---
Author Organization [address] [facility] Address [address] [place] [address] Phone Care Team Providers Care Knife Cutter Name Role Phone Lin Carrillo MD Primary Care Provider + [phone] Allergies Active Allergy Reactions Criticality Noted Date [...] nasal spray fluticasone propionate 50 mcg/actuation nasal spray,suspensio n INSTILL 2 SPRAYS IN EACH NOSTRIL ONCE A DAY NEEDED Active gabapentin (NEURONTIN) 300 mg capsule Take [...] mouth 1 (one) time each day. Active cyanocobalamin (VITAMIN B-12) 100 mcg tablet Take 0.5 tablets (50 mcg total) by mouth 1 (one) time each day. Active gabapentin (NEURONTIN) 300 mg capsule Take 3 capsules (900 mg total) by mouth at bedtime. Active lisinopriL (PRINIVIL,ZEST RIL) 30 mg tablet Take 1 tablet (30 mg total) by mouth 1 (one) time each day. Active cholecalcifero l (VITAMIN D-3) 25 mcg (1,000 unit) tablet Take 1 tablet (1,000 Units total) by mouth 1 (one) time each day. Active ezetimibe (ZETIA) 10 mg tablet Take 1 tablet (10 mg total) by mouth 1 (one) time each day. 5 Active amLODIPine (NORVASC) 5 mg tablet Take 1 tablet (5 mg total) by mouth 1 (one) time each day in the morning. 90 each 1 5 Active rosuvastatin (CRESTOR) 5 mg tablet Take 1 tablet (5 mg total) by mouth 1 (one) time each day. 30 each 11 5 Active pravastatin (PRAVACHOL) 40 mg tablet Take 1 tablet (40 mg total) by mouth 1 (one) time each day. 3 08/03/20 25 Discontin ued([place] therapy) magnesium, amino acid chelate, 133 mg tablet Take 1 tablet (133 mg total) by mouth 2 (two) times a day. 08/03/20 25 Discontin ued(Thera py completed ) potassium gluconate 550 mg (90 mg) tablet Take by mouth. 08/03/20 25 Discontin ued(Thera py completed ) Active Problems Problem Noted Date Diagnosed Date [...] Tick bite 07/11/2017 Arthritis 07/11/2017 Anemia 07/11/2017 Encounters Date Type Department Care Team Description 08/13/2025 Telephone [facility] Cardiology [facility] [address] [place] [address] Collins Oh MD 08/06/2025 Results Follow-Up [facility] [address] [address] Emerald Gaxiola NP 08/03/2025 11:10 AM EST Office Visit [facility] [address] [phone] Emerald Gaxiola NP Primary hypertension (Primary Dx); Mixed hyperlipidemia from Last 3 Months Surgical History Surgery Date Site/Laterality Comments LUNG REMOVAL, PARTIAL BRONCHOSCOPY APPENDECTOMY EXPLORATORY LAPAROTOMY RECTAL SURGERY KNEE ARTHROPLASTY KIDNEY STONE SURGERY PROSTATE SURGERY Medical History Medical History Date Comments Pneumohemothorax Cancer ([facility] V24, [facility] V28) Prostate cancer ([facility] V24, [facility] V28) Hypertension Hyperlipidemia GERD (gastroesophageal reflux disease) Cholelithiasis Dental disease Diabetes mellitus ([facility] V24, [facility] V28) Social History Tobacco Use Types Packs/Day [...] Orientation Straight 09/14/2024 8: 14 AM EST Last Filed Vital Signs Vital Sign Reading Time Taken Comments Blood Pressure 164/82 08/03/2025 11:23 AM EST Pulse 75 08/03/2025 10:50 AM EST Temperature 36.6 C (97.8 F) 09/14/2024 1:19 PM EST Respiratory Rate 20 09/14/2024 1:19 PM EST Oxygen Saturation 98% 08/03/2025 10:50 AM EST Inhaled Oxygen Concentration - - Weight 77.1 kg (170 lb) 08/03/2025 10:50 AM EST Height 170.2 cm (5' 7 ) 08/03/2025 10:50 AM EST Body Mass Index 26.63 08/03/2025 10:50 AM EST Plan of Treatment Health Maintenance Due [...] 09/15/2021, 09/15/2021 Depression Screening 09/09/2024 COVID-19 Vaccine (10 - Moderna risk season) 2025 05/16/2025, 05/09/2024, 06/24/2023, Additional history exists Diabetes: Annual GFR (Glomerular Filtration Rate) 11/23/2025 11/23/2024, 09/15/2021 Hypertension/CHF/CAD Annual BMP Blood Test 11/23/2025 11/23/2024, 09/15/2021 Colorectal Cancer Screening: Colonoscopy 09/17/2028 09/17/2018 Cholesterol Screening (Lipid Panel) 08/04/2030 08/04/2025, 08/04/2025, 08/04/2025, Additional history exists Zoster Vaccines Completed 06/15/2020, 11/12/2019 Pneumococcal Vaccine: 50+ Years Completed 02/14/2023 RSV Immunization Adult Patients Completed 05/02/2023 Influenza Vaccine Completed 04/28/2025, , 07/21/2023, Additional history exists HIB Vaccines Aged Out No longer eligi [...] this topic Medical Devices Implanted Type Area Linoleum Layer Device Identifier Shelf Expiration Date Model / Serial / Lot Dental Implants Dental Implants N/A: Mouth Procedures Procedure Name Priority Date/Time Associated Diagnosis Comments TRIGLYCERIDES Routine 08/04/2025 11:45 AM EST Mixed hyperlipidemia LDL CHOLESTEROL, DIRECT Routine 08/04/2025 11:45 AM EST Mixed hyperlipidemia CHOLESTEROL, TOTAL Routine 08/04/2025 11 :45 AM EST Mixed hyperlipidemia HDL CHOLESTEROL Routine 08/04/2025 11:45 AM EST Mixed hyperlipidemia BASIC METABOLIC PANEL Routine 11/23/2024 1:10 PM EDT Gallstones HM URINE ALBUMIN CREATININE RATIO Routine 09/15/2021 HEMOGLOBIN A1C Routine 09/15/2021 from Last 3 Months or Most Recently Relevant to Health Maintenance Results * (ABNORMAL) Triglycerides (08/04/2025 11:45 AM EST) Triglycerides 763(HH) 0 - 149 mg/dL [facility] 1 Blood Venous blood specimen / Unknown 08/04/2025 11:45 AM EST 08/04/2025 Narrative [facility] 1 - 08/05/2025 5:06 AM EST Performed at: 01 - [facility] [address], [place], [place] [id number] Concrete Pourer: Brigido De Los Santos MD, Phone: [phone] us Emerald Gaxiola DIRECT SUPPORT STAFF MEMBER LAB BLOOD ORDERABLES Final R esult [facility] 1 * (ABNORMAL) LDL cholesterol, direct (08/04/2025 11:45 AM EST) LDL Chol. (Direct) 101(H) 0 - 99 mg/dL [facility] 1 Blood Venous blood specimen / Unknown 08/04/2025 11:45 AM EST 08/04/2025 Narrative [facility] 1 - 08/05/2025 5:06 AM EST Performed at: - [facility] [place] [address], [place] [id number] Concrete Pourer: Brigido De Los Santos MD, Phone: [phone] Emerald Gaxiola NP LAB BLOOD ORDERABLES Final R esult Performing Organization Address City/[facility]/ZIP Co de Phone Number [facility] 1 * (ABNORMAL) HDL cholesterol (08/04/2025 11:45 AM EST) HDL Cholesterol 35(L) >39 mg/dL [facility] 1 Blood Venous blood specimen / Unknown 08/04/2025 11:45 AM EST 08/04/2025 Narrative [facility] 1 - 08/05/2025 5:06 AM EST Performed at: - [facility] [place] [address], [place] [id number] Concrete Pourer: Brigido De Los Santos MD, Phone: [phone] Emerald Gaxiola NP LAB BLOOD ORDERABLES Final R esult Performing Organization Address City/[facility]/ZIP Co de Phone Number [facility] * (ABNORMAL) Cholesterol, total (08/04/2025 11:45 AM EST) Pathologist [facility] Cholesterol Total 226(H) 100 - 199 mg/dL [facility] 1 Blood Venous blood specimen / Unknown 08/04/2025 11:45 AM EST 08/04/2025 Narrative [facility] 1 - 08/05/2025 5:06 AM EST Performed at: - [facility] [place] [address], [place], [place] [id number] Concrete Pourer: Brigido De Los Santos MD, Phone: [phone] Emerald Gaxiola NP LAB BLOOD ORDERABLES Final R esult [facility] 1 * (ABNORMAL) Basic metabolic panel (11/23/2024 1:10 PM EDT) Pathologist [facility] Sodium 137 133 - 145 mmol/L LAB CHEMISTRY METHOD 11/23/2024 4:50 PM [facility] Potassium 4.5 3.5 - 5.5 mmol/L LAB CHEMISTRY METHOD 11/23/2024 4:50 PM [facility] Chloride 102 96 - 110 mmol/L LAB CHEMISTRY METHOD 11/23/2024 4:50 PM [facility] CO2 28 21 - 32 mmol/L LAB CHEMISTRY METHOD 11/23/2024 4:50 PM [facility] Anion Gap 7 3 - 11 LAB CHEMISTRY METHOD 11/23/2024 4:50 PM [facility] Glucose 135(H) 70 - 100 mg/dL LAB CHEMISTRY METHOD 11/23/2024 4:50 PM [facility] BUN 17 5 - 25 mg/dL LAB CHEMISTRY METHOD 11/23/2024 4:50 PM [facility] Creatinine 1.03 0.70 - 1.30 mg/dL LAB CHEMISTRY METHOD 11/23/2024 4:50 PM [facility] eGFR 76 >=60 mL/min/1. 73m2 LAB CHEMISTRY METHOD 11/23/2024 4:50 PM [facility] Comment:Calculation based on the Chronic Kidney Disease Epidemiology Collaboration (CKD-EPI) equation refit without adjustment for race. BUN/Creatinine Ratio 16.5 LAB CHEMISTRY METHOD 11/23/2024 4:50 PM [facility] Calcium 9.4 8.5 - 10.5 mg/dL LAB CHEMISTRY METHOD 11/23/2024 4:50 PM [facility] Blood Venous blood specimen / Unknown Venipuncture / Unknown 11/23/2024 1:10 PM EDT 11/23/2024 1:10 PM EDT us Oc Santos DO LAB BLOOD ORDERABLES Final Res ult [facility]) [facility] [address] [place] [address], [place] [phone] * HM Urine Albumin Creatinine Ratio (09/15/2021) Urine Albumin Creatinine Ratio abstracted us Historical Provider HEALTH MAINTENANCE Final Result * Hemoglobin A1c (09/15/2021) Hemoglobin A1C 0.0 % Comment:no interpretation, a bstracted Blood Venous blood specimen / Unknown Historical Provider MD LAB BLOOD ORDERABLES Nereida l Result from [...] currently active code status orders. Care Teams Knife Cutter Relationship Specialty Start Date End Date Lin Carrillo MD [address] [place] [address] PCP - General Internal Medicine 08/24/24
--- OUTSIDE RECORDS SUMMARY | 2025-08-29 11:14 | XMS_ITS | Encounter Summary ---
Author Organization [employer] Address [address] [place] [address] Care Team Providers Care Lithographic Plate Maker Apprentice Name Role Phone Lin Carrillo MD Primary Care Provider + [phone] Encounter Details Date Type Department Care Team (Late st Contact Info) Description 08/06/2025 Results Follow-Up [facility] [address] [place] [phone] Emerald Gaxiola NP [address] [place] [address] [address] [place] [address] Social History Tobacco Use Types Packs/Day Years Used Date Smoking Tobacco: Former Cigarettes 1 Q uit: 09/09/1983 Smokeless Tobacco: Never Alcohol Use Standard Drinks/Week Comments Not Asked 0 (1 standard drink = 0.6 oz pur e alcohol) Sex and Gender Information Value Date Recorded Sex Assigned at Male 09/14/2024 8:14 AM EST Legal Sex Male 4:04 AM EST Gender Identity Male 09/14/2024 8:14 AM EST Sexual Orientation Straight 09/14/2024 8: 14 AM EST documented as of this encounter Ordered Prescriptions Prescription Sig Dispense Quantity Refills Last Filled Start Date End Date rosuvastatin (CRESTOR) 5 mg tablet Take 1 tablet (5 mg total) by mouth 1 (one) time each day. 30 each 08/06/2025 documented in this encounter Plan of Treatment Scheduled Orders Name Type Priority Associated Diagnoses Orde r Schedule Comprehensive metabolic panel Lab Routine Mixed hyperlipidemia 1 Occurrences starting 08/06/2025 until 08/06/2026 HDL cholesterol Lab Routine Mixed hyperlipidemia 1 Occurrences starting 08/06/2025 until 08/06/2026 Cholesterol, total Lab Routine Mixed hyperlipidemia 1 Occurrences starting 08/06/2025 until 08/06/2026 LDL cholesterol, direct Lab Routine Mixed hyperlipidemia 1 Occurrences starting 08/06/2025 until 08/06/2026 Triglycerides Lab Routine Mixed hyperlipidemia 1 Occurrences starting 08/06/2025 until 08/06/2026 documented as of this encounter Visit Diagnoses Diagnosis Mixed hyperlipidemia- Primary documented in this encounter Care Teams Lithographic Plate Maker Apprentice Relationship Specialty Start Date End Date Lin Carrillo MD [address] [place] [address] PCP - General Internal Medicine 08/24/24 documented as of this encounter
--- OUTSIDE RECORDS SUMMARY | 2025-08-29 11:14 | XMS_ITS | Clinical Summary ---
Author Organization [facility] lin Address [address] [place] [address] Care Team Providers Care Automotive Parts Counter Associate Name Role Phone Lin Carrillo MD Primary [...] Adults 18 yrs or above (or HM Modifier)([facility]) 1968 Hepatitis C Virus Infection in Adolescents and Adults: Screening (or Modifier) ([facility]) 1968 [facility] Screening Reminder: Cecy hearn for all adults ([facility]) 1968 Tobacco Smoking Cessation: i n Adults excluding Women: Behavioral and Pharmacotherapy Interventions ([facility]) 1968 DTaP/Tdap/Td Vaccines ([facility]) (1 - Tdap) 1969 Colorectal Cancer Screening 45 -75 Yrs (or HM Modifier ) 1995 Colorectal Cancer: FLEXIBLE SIGMOIDOSCOPY Screening every 5 yrs 1995 Colorectal Cancer: Fecal Imm unochemical Test (FIT) Annually [facility] 1995 Colorectal Cancer: High-sens itivity gFOBT Screening Annually [facility] 1995 Colorectal Cancer: Stool Col oguard Screening every 3 yrs 1995 Colorectal Cancer:CT Colonography Screening every 5 yr s 1995 Pneumococcal Vaccination Scr eening: Patients 50+ yrs of age ([facility]) (1 of 1 - PCV) 2000 Zoster/Shingles Vaccine Seri es Screening: Adults aged 18+ yrs (or HM Modifiers)([facility]) (1 of 2) 2000 Flu Vaccination: Ages 65+: Y early High Dose Recommended (or Modifier)([facility]) 04/09/2025 COVID-19 Vaccine Screening: Initial Series and Booster Status ([facility]) ( - 2024- season) 2025 RSV Vaccines (1 - 1-dose 75+ series) 2025 Medical Devices Not on file Insurance [facility] [employer] Care Teams Automotive Parts Counter Associate Relationship Specialty Start Date End Date Lin Carrillo MD [address] [place] [phone] PCP - General Internal Medicine 05/27/23
--- OUTSIDE RECORDS SUMMARY | 2025-08-29 11:14 | XMS_ITS | Clinical Summary ---
Author Organization [facility] Prior to 02/06/[address] [place] [id number] Care Team Providers Care Chemist Water Purification Name Role Phone Lin Carrillo MD Primary Care Provider [phone] Allergies No known active allergies Medications Medication [...] mouth every morning with breakfast. 0 Active [place]-3 Fatty Acids (OMEGA-3 CF) 1000 MG CAPS [...] series) 07/15/2023 06/24/2023 Influenza Vaccine (#1) 2025 , 06/01/2022, 06/01/2022, Additional history exists Shingrix-Zoster Vaccine Completed 06/15/2020, 11/11 Pneumococcal Vaccine Completed 02/14/2023 RSV Adult > 60+ Yrs or Completed 05/02/2023 Hepatitis B Vaccines Aged Out No long er eligible based on patient's age to complete this topic RSV Ped < 20 months Aged Out No longe r eligible based on patient's age to complete this topic Care Teams Chemist Water Purification Relationship Specialty Start Date End Date Lin Carrillo MD [address] [place] [phone] PCP - General Internal Medicine 08/05/23
--- OUTSIDE RECORDS SUMMARY | 2025-08-29 11:14 | XMS_ITS | Encounter Summary ---
Author Organization [employer] Address [address] [facility] [address] [place] [address] Care Team Providers Care Design Leader Name Role Phone CarrilloLin browning Primary Care Provider [phone] Reason for Visit * Reason Comments Med Refill Encounter Details Date Type Department Care Team (Late st Contact Info) Description 01/17/2024 Refill [facility] [address] [place] [address] Anusha Rascon, JADA [address] [place] [address] Social History Tobacco Use Types Packs/Day Years [...] on filedocumented in this encounter Care Teams Design Leader Relationship Specialty Start Date End Date Gerardo Lin [address] [phone] PCP - General Internal Medicine 10/12/24 documented as of this encounter
== END 2025-08-29 11:12 | disposition home or self-care (01) ==
LOC: HO.MRI 11:11
PROVIDERS: PCP Internal Medicine; Visit Provider Psychiatry & Neurology Neurology
DX: G31.84 Mild cognitive impairment of uncertain or unknown etiology (principal)
CPT/HCPCS: 70551

== ENCOUNTER → 2025-08-29 11:14 | Outpatient (BNV) | payer MEDICARE, SELFPAY | PROVIDERS: PCP Internal Medicine; Visit Provider Radiology Diagnostic Radiology | DX: G31.84 Mild cognitive impairment of uncertain or unknown etiology (principal) | CPT/HCPCS: 70551 ==